=== PATIENT | male | born 1990 | race Caucasian/White ===

== ENCOUNTER 2019-06-16 20:42 | Observation (INO) | payer MEDICAID, SELFPAY ==
[2019-06-16 20:43] VITALS: BP 138/71; PULSE 60; RESP 15; TEMP 36.3; O2SAT 99; BMI 27.8
[2019-06-16 21:21] LABS: Bedside Glucose 170 mg/dL (70-110)
--- NOTE | 2019-06-16 21:24 | ED.DCSUM_ITS ---
- ER Visit Summary Date of Service: 06/16/19 Chief Complaint: Using fentanyl while on Suboxone for prior history of drug abuse. History of Present Illness: The patient is a 29 M past male history of drug abuse. Currently on Suboxone. Grandma is with him she gives most of the history. States that he has had several episodes of being diaphoretic today. No vomiting no diarrhea. No fever. No reported head injury. He denies being ill. Patient does willingly admit to using fentanyl while he is on Suboxone. He denies any hematemesis or melena. Physical Examination: 29-year-old male no acute distress. Sleepy. But arousable. Vital signs are stable and afebrile. Pulse ox 99% on room air no signs of hypoxia no distress. HEENT exam unremarkable. Atraumatic. Moist week's membranes. TMs normal. No hemotympanum. Pupils are unreactive/motions are intact pupils about 2 to 3 mm. No signs of trauma to his face or scalp. Neck nontender. No lymphadenopathy. Lungs clear to auscultation bilaterally. Heart regular rate and rhythm no murmur. Rate about 60. Chest were nontender. Abdomen soft nontender. No peritoneal signs. Pelvic girdle intact. Patient is moving all 4 extremities. No track mejias. No edema. No rashes. Normal range of motion. Nontender. Back nontender. Neurologically sleepy but easily arousable. Is awake and alert. He is able to give a history. He can move all of his extremities there is no focal motor deficits. Test Results: CBC shows no acute abnormality. White count of 9. Hemoglobin 14. No bands. Chemistries unremarkable anion gap of 4 normal BUN and creatinine glucose of 121. Emergency Department Course and Treatment: Patient's exam is basically unremarkable except he is sleepy. I think this is all secondary to drug abuse and probably withdrawal caused by the Suboxone off the same time using fentanyl. Currently he is not showing signs of withdrawal. Will be treated with a liter normal saline and screening labs obtained. Treatment Plan: On repeat exam the patient was extremely diaphoretic. Mildly agitated. He has a worn out for his arrest but the correction was full so he could be taken there. I spoke to the hospitalist his family was concerned they would be able to take care of him tonight with his withdrawal symptoms and he will admit him overnight. Disposition: Observation admission Impression: Acute on chronic drug abuse Suboxone therapy for drug abuse This note was generated with Refinder by [employer] dictation software. It may contain incorrect words, spelling, and punctuation that were not noted in review of the chart prior to signing ED Disposition - Plan for ED Patient: Disposition: Home or Assisted Living Instructions: Narcotic Withdrawal Referrals: Chika Desai [NON-STAFF] - As Needed Additional Instructions: Do not use any narcotic medications while you are taking her Suboxone.
[2019-06-16] MEDS: 0.9% Normal Saline 1,000 ML 1000 ML IV (21:32)
[2019-06-16 21:33] LABS: Absolute Lymphocyte Count 1.62 X10^3/uL (0.83-4.51); Absolute Neutrophil Count 7.3 X10^3/uL (2.0-7.7); Basophil# 0.03 X10^3/uL; Basophil% 0.3 % (0-1); Eosinophil# 0.05 X10^3/uL; Eosinophils% 0.5 % (0-5); Hematocrit 43.8 % (40-54); Hemoglobin 14.7 g/dL (13.0-16.5); Lymphocyte # 1.62 X10^3/ul (4.0); Lymphocyte % 17.1 % (19-41); Mean Corp Hgb Conc 33.6 g/dL (32-36); Mean Corpuscular Hgb 31.1 pg (27.0-32.0); Mean Corpuscular Volume 92.8 fL (80-94); Mean Platelet Vol. 10.6 fl (6.2-12.0); Monocyte# 0.52 X10^3/uL; Monocyte% 5.5 % (0-10); NRBC Flagged by Analyzer 0 % (0-5); Neutrophil # 7.25 X10^3/uL (2.7-7.7); Neutrophil % 76.3 % (47-70); Platelet Count 266 K/mm3 (150-450); RBC Distribution Width CV 12.8 % (11.6-14.6); RBC Distribution Width SD 43.8 fl (35.1-43.9); Red Blood Count 4.72 M/mm3 (4.6-6.2); White Blood Count 9.5 K/mm3 (4.4-11.0)
[2019-06-16 21:40] LABS: Anion Gap 4 (5-15); BUN 11 mg/dL (7-18); Calcium,Total 9.2 mg/dL (8.5-10.1); Chloride 105 mmol/L (98-107); Creatinine, Serum 0.84 mg/dL (0.70-1.30); EST Glomerular Filtration Rate 113 mL/min (>60); Est Glom Filt Rate - Afr Amer 137 mL/min (>60); Estimated Creatinine Clearance 136.95 ml/min; Glucose 121 mg/dL (74-106); Potassium 3.4 mmol/L (3.5-5.1); Sodium Level 137 mmol/L (136-145)
--- NOTE | 2019-06-16 22:07 | ED.DEP ---
ED Disposition - Plan for ED Patient: Disposition: Home or Assisted Living Instructions: Narcotic Withdrawal Referrals: Chika Desai [NON-STAFF] - As Needed Additional Instructions: Do not use any narcotic medications while you are taking her Suboxone.
--- NOTE | 2019-06-16 22:16 | PCM.HP.STD ---
Problem List (1) Opioid withdrawal Status: Acute History of Present Illness Date of Admission: 06/16/19 Chief Complaint: opioid withdrawal The patient is a 29 year old M with a significant history of tobacco abuse; marijuana abuse; opioid dependence who presented to emergency department with withdrawal symptoms. He reported his symptoms as chills; rigors; and severe diaphoresis. Patient reported that he developed opioid addiction after he was prescribed opioids following knee surgery. He reported that he has been clean since August of this year. However he relapsed recently. Patient is on Suboxone therapy. While on Suboxone he has been snorting fentanyl. A day before his presentation he missed a dose of his Suboxone. But on the day of presentation he took his Suboxone. Also on the same day of presentation he snorted fentanyl. At the Emergency department patient had severe diaphoresis and soaked the bed sheets at the emergency department. He was given IV fluids at the emergency department. Past Medical History Medical History: Medical History (Last Reviewed 06/16/19 @ 23:01 by Kevan Raya MD) Opioid abuse F11.10 Allergies amoxicillin [Amoxicillin] Adverse Reaction (Verified 06/16/19 20:47) Nausea/Vom/Diarrhea Penicillins Adverse Reaction (Verified 06/16/19 20:47) Nausea/Vom/Diarrhea Home Medications: Ambulatory Orders Medication Instructions Recorded Buprenorphine HCl/Naloxone HCl 1 tab SL DAILY 06/16/19 [Zubsolv 5.7-1.4 mg Tablet Sl] Surgical History: - - Knee and ankle surgery Lives: With Family Smoking Status: Current every day smoker Tobacco Use: Cigarettes Alcohol: None Drugs: Marijuana - *Family History Maternal History Items: - - Drug abuse Paternal History Items: - - Drug abuse Review of Systems Constitutional: Reports: Chills. Denies: Fever, Weight Change HEENT: Denies: Head Aches, Sinus Congestion, Sinus Drainage Cardiovascular: Denies: Chest Pain, Palpitations Respiratory: Denies: Cough, Shortness of breath at rest, Sputum production Gastrointestinal: Denies: Abdominal Pain, Nausea, Vomiting Genitourinary: Denies: Dysuria Musculoskeletal: Reports: Leg Pain. Denies: Joint Pain, Joint Tenderness Skin: Denies: Rash, Wounds Neurological: Denies: Numbness, Tingling, Focal weakness Psychiatric: Denies: Homicidal Ideations, Suicidal Ideations Hematologic/ Lymphatic: Denies: Easy Bruising, Easy Bleeding VTE Information - Inpt Only VTE Present on Admission: No VTE Mechan Device Prophylaxis: None VTE Pharm Prophylaxis ordered?: No Reason prophylaxis not ordered:: Treatment Not Indicated - Low risk; encouraged to ambulate Patient Problems: Active and Suspected Problems (Last Updated 06/16/19 @ 22:54 by Kevan Raya MD) Opioid withdrawal (Acute) - Physical Exam Vitals/I&O's: Vital Signs Temp Pulse Resp BP Pulse Ox 97.3 F L 60 15 138/71 H 99 06/16/19 20:43 06/16/19 20:43 06/16/19 20:43 06/16/19 20:43 06/16/19 20:43 Oxygen Delivery Method Room Air Weight: 90.718 kg Body Mass Index (BMI) 27.8 Finger Stick Blood Glucose 170 Intake and Output for Last 24 Hours 06/14/19 06/15/19 06/16/19 23:59 23:59 23:59 Intake Total 1000 / 1000 Balance 1000 / 1000 General: Alert, Oriented x3, Cooperative, - - Patient coiled in the position and with severe diaphoresis HEENT: Atraumatic, PERRLA, EOMI, Normocephalic Neck: Supple, No JVD, Negative Carotid Bruits Lungs: Clear to auscultation, Normal air movement, Tachypneic Cardiovascular: Regular rate, No murmurs Abdomen: Bowel Sounds Present, Soft, Non Tender Extremities: No edema, Capillary Refill Less than 3 Seconds Skin: No rashes, No breakdown Musculoskeletal: No Tenderness to Palpation of Joints or Extremities Neurological: Cranial nerves II-XII grossly intact Psych/Mental Status: Anxious Laboratory Results 06/16/19 20:54: POC Glucose 170 H 06/16/19 21:05: WBC 9.5, RBC 4.72, Hgb 14.7, Hct 43.8, MCV 92.8, MCH 31.1, MCHC 33.6, RDW Std Deviation 43.8, RDW Coeff of Yarelis 12.8, Plt Count 266, MPV 10.6, Immature Gran % (Auto) 0.300, Neut % (Auto) 76.3 H, Lymph % (Auto) 17.1 L, [place] % (Auto) 5.5, Eos % (Auto) 0.5, Baso % (Auto) 0.3, Absolute Neuts (auto) 7.3, Absolute Lymphs (auto) 1.62, Nucleated RBC % 0 06/16/19 21:05: Sodium 137, Potassium 3.4 L, Chloride 105, Carbon Dioxide 28.0, Anion Gap 4 L, BUN 11, Creatinine 0.84, Estim Creat Clear Calc 136.95, Est GFR (MDRD) Af Amer 137, Est GFR (MDRD) Non-Af 113, BUN/Creatinine Ratio 13.0, Glucose 121 H, Calcium 9.2 Current Medications Sodium Chloride () 1,000 mls @ 1,000 mls/hr IV .Q1H ONE Stop: 06/16/19 22:23 Last Infusion: 06/16/19 21:58 Dose: Infused Documented by: Assessment/Plan All Active Problems (Last Updated 06/16/19 @ 22:54 by Kevan Raya MD) Opioid withdrawal (Acute) The patient is a 29 year old M with a significant history of tobacco abuse; marijuana abuse; opioid abuse who presented to emergency department with chills; diaphoresis; and bilateral leg pain consistent with acute opioid withdrawal . Opiate dependence with acute withdrawal Probable patient has not found a balance between Suboxone use and fentanyl use. We will start patient on buprenorphine taper and other adjunctive opioid withdrawal medications. Patient received IV fluids in the emergency department. Because of severe diaphoresis with soaking of the bed sheet at the emergency department will continue patient on IV fluids. Normal saline with potassium ordered as patient is also hypokalemic. Hypokalemia On presentation his potassium was 3.4. We will give 40 mEq of potassium and start patient on normal saline with potassium supplementation. Trend BMP Marijuana use Counseled Tobacco abuse Counseled Nicotine patch ordered. DVT prophylaxis Low risk Encourage to ambulate. Code Visit Inpatient E&M: 40266 Init Hosp L3
[2019-06-16 22:36] VITALS: PULSE 61
[2019-06-16 22:58] VITALS: BMI 28.8
[2019-06-16 23:11] VITALS: BP 102/62; PULSE 49; RESP 16; O2SAT 99
[2019-06-16] MEDS: Potassium Chloride 40 MEQ in 0.9% Normal Saline 1,000 ML 100 MEQ IV (23:26)
[2019-06-16] MEDS: Buprenorphine HCl 2 MG TAB.SUBL SL (23:26)
[2019-06-17] VITALS (10 sets, daily range): BP systolic 110–145; BP diastolic 63–86; PULSE 55–97; RESP 12–22; TEMP 31.6–36.8; O2SAT 90–99
[2019-06-17] MEDS: Ondansetron 4 MG/2 ML Vial IV (03:34)
[2019-06-17] MEDS: Buprenorphine HCl 2 MG TAB.SUBL SL ×3 (06:30→22:18)
[2019-06-17 06:58] LABS: Anion Gap 7 (5-15); BUN 9 mg/dL (7-18); BUN/Creat Ratio 15.5 RATIO (10-20); Calcium,Total 8.5 mg/dL (8.5-10.1); Chloride 109 mmol/L (98-107); Creatinine, Serum 0.58 mg/dL (0.70-1.30); EST Glomerular Filtration Rate 174 mL/min (>60); Est Glom Filt Rate - Afr Amer 210 mL/min (>60); Estimated Creatinine Clearance 192.29 ml/min; Glucose 114 mg/dL (74-106); Potassium 4.1 mmol/L (3.5-5.1); Sodium Level 138 mmol/L (136-145)
--- NOTE | 2019-06-17 07:43 | NURSING ---
cat cormier placed on pt.
[2019-06-17 08:07] LABS: Thyroid Stim Hormone (TSH) 0.49 uIU/mL (0.358-3.74)
--- NOTE | 2019-06-17 09:06 | NURSING ---
heating blanket removed
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
--- NOTE | 2019-06-17 11:56 | PCM.PN.HOSP ---
Patient Problems: Active and Suspected Problems (Last Reviewed 06/16/19 @ 23:01 by Kevan Raya MD) Opioid withdrawal (Acute) Subjective: Feeling better today now that his body temperature is back to normal. He states that he has been on Suboxone since in the last week he started using crushed fentanyl. He was feeling okay yesterday around 8 AM when he had snorted fentanyl, however by that night around 6 PM he started having chills and Reiger's. He also became very sweaty in the ER and does not remember much of his trip to the ER or how he was in the ER. Vitals/I&O's: Vital Signs Temp Pulse Resp BP Pulse Ox 97.9 F 68 12 128/73 H 99 06/17/19 10:38 06/17/19 08:47 06/17/19 08:53 06/17/19 08:47 06/17/19 08:53 Oxygen Delivery Method Room Air Weight: 200 lb 13.458 oz Body Mass Index (BMI) 28.8 Finger Stick Blood Glucose 170 Intake and Output for Last 24 Hours 06/15/19 06/16/19 06/17/19 23:59 23:59 23:59 Intake Total 1000 / 1000 1020 / 1020 Output Total 725 / 725 Balance 1000 / 1000 295 / 295 General: Alert, Oriented x3, Cooperative, No apparent distress HEENT: Atraumatic, PERRLA, EOMI, Normocephalic Oral: Moist Mucosa Neck: Supple, No JVD Lungs: Clear to auscultation, Normal air movement, No rhonchi, No wheeze, No rales Cardiovascular: Regular rate, Regular Rhythm, Normal S1, Normal S2, No murmurs Abdomen: Soft, Non Tender, Non-Distended, No Hepato-splenomegaly Extremities: No edema, Capillary Refill Less than 3 Seconds Skin: No rashes, No breakdown Neurological: Neuro grossly intact, Sensory exam intact to light touch and pain Psych/Mental Status: Normal Affect, Appropriate Laboratory Results 06/16/19 20:54: POC Glucose 170 H 06/16/19 21:05: WBC 9.5, RBC 4.72, Hgb 14.7, Hct 43.8, MCV 92.8, MCH 31.1, MCHC 33.6, RDW Std Deviation 43.8, RDW Coeff of Yarelis 12.8, Plt Count 266, MPV 10.6, Immature Gran % (Auto) 0.300, Neut % (Auto) 76.3 H, Lymph % (Auto) 17.1 L, [place] % (Auto) 5.5, Eos % (Auto) 0.5, Baso % (Auto) 0.3, Absolute Neuts (auto) 7.3, Absolute Lymphs (auto) 1.62, Nucleated RBC % 0 06/16/19 21:05: Sodium 137, Potassium 3.4 L, Chloride 105, Carbon Dioxide 28.0, Anion Gap 4 L, BUN 11, Creatinine 0.84, Estim Creat Clear Calc 136.95, Est GFR (MDRD) Af Amer 137, Est GFR (MDRD) Non-Af 113, BUN/Creatinine Ratio 13.0, Glucose 121 H, Calcium 9.2 06/17/19 06:15: Sodium 138, Potassium 4.1, Chloride 109 H, Carbon Dioxide 22.0, Anion Gap 7, BUN 9, Creatinine 0.58 L, Estim Creat Clear Calc 192.29, Est GFR (MDRD) Af Amer 210, Est GFR (MDRD) Non-Af 174, BUN/Creatinine Ratio 15.5, Glucose 114 H, Calcium 8.5 06/17/19 06:15: TSH 0.49 Current Medications Acetaminophen (Tylenol) 650 mg PO Q6H PRN PRN PRN Reason: Pain Score 1-3/Temp > 100.7 F Buprenorphine HCl (Buprenorphine Hcl) 4 mg SL Q8H [place]; Taper Stop: 06/20/19 02:49 Last Admin: 06/17/19 06:30 Dose: 4 mg Documented by: Clonidine (Catapres) 0.1 mg PO Q2H PRN PRN PRN Reason: Hot/Cold Sweats or Anxiety Dextrose (D50w Syringe) 0 gm IV X1 PRN; Protocol PRN Reason: Hypoglycemia Dicyclomine HCl (Bentyl) 20 mg PO Q6H PRN PRN PRN Reason: Abdomnial Discomfort Glucagon () 1 mg IM .X1 PRN PRN Reason: Hypoglycemia Hydroxyzine HCl (Vistaril Vial) 50 mg IM Q6H PRN PRN PRN Reason: Breakthrough Anxiety Hydroxyzine Pamoate (Vistaril Pamoate Capsule) 50 mg PO Q6H PRN PRN PRN Reason: Mild Anxiety Sodium Chloride () 250 mls @ 15 mls/hr IV .[id number] PRN PRN Reason: Saline Flush Methocarbamol (Methocarbamol) 750 mg PO Q6H PRN PRN PRN Reason: Muscle Aches Nicotine (Nicoderm Cq (Pbkc)) 21 mg TRANSDERM. DAILY TR[place]IDAD Last Admin: 06/17/19 09:42 Dose: 21 mg Documented by: Ondansetron HCl (Zofran) 4 mg IV Q8H PRN PRN PRN Reason: NAUSEA/VOMITING Last Admin: 06/17/19 03:34 Dose: 4 mg Documented by: Pramipexole Dihydrochloride (Mirapex) 0.25 mg PO Q12H PRN PRN PRN Reason: Restless Legs Sodium Chloride () 10 - 40 ml IV UD PRN PRN Reason: SALINE FLUSH STROKE Vital Signs/Narrative: Vital Signs Temp Pulse Resp BP Pulse Ox 06/17/19 10:38 97.9 F 06/17/19 08:53 12 99 06/17/19 08:47 98.0 F 68 12 128/73 H 99 06/17/19 08:10 97.5 F L 55 L 16 115/75 97 Medical Necessity - Tobacco Use Smoking Status: Current every day smoker Tobacco Use: Cigarettes Assessment/Plan All Active Problems (Last Reviewed 06/16/19 @ 23:01 by Kevan Raya MD) Opioid withdrawal (Acute) 1. Acute opiate withdrawal/hypothermia -He has been snorting fentanyl and taking his Suboxone for about the last week. -No recent illnesses -Continue with IV fluids, he also had a bear hugger placed for significant hypothermia his initial vital which was 89.3, and then it was improved to 95. On admission he was placed on a bear hugger now his body temperatures back to normal -Continue with Suboxone -TSH was normal 2. Marijuana use/tobacco use -Advised cessation and provide a nicotine patch -He denies any other drug use 3. Hypokalemia-resolved DVT: Ambulation Code Visit Inpatient E&M: 88754 Subs Hosp L2
[2019-06-17] MEDS: hydrOXYzine PAM 25 MG Capsule 50 MG PO ×2 (12:54→19:03)
[2019-06-17] MEDS: Acetaminophen 325 MG Tablet 650 MG PO ×2 (12:54→19:59)
--- NOTE | 2019-06-17 14:04 | CHAPLAIN ---
Type of Pastoral Visit _x__ Initial Visit ___ Follow-up Visit ___ On-call Visit ___ General Patient Visit ___ Spiritual Assessment ___ Family Conference ___ Bereavement ___ Rapid Response ___ Code Blue ___ Other (describe below) Pastoral Care Referral From _x__ Patient ___ Family _x__ Nurse ___ Physician ___ [employer] Head Inspector And Adjuster ___ Business Info Consultant ___ Other (describe below) Sacrament/Intervention _x__ Active listening ___ Anointing ___ Hoahaoism ___ Bereavement ___ Communion _x__ Danita exploration ___ _x__ Life review _x__ Prayer ___ Reconciliation ___ Sacrament of Sick _x__ Supportive presence ___ Wedding ___ Other (describe below) Pastoral Comments patient immediately opens up about his life, past, family, concerns, and langley to be drug free; pt requests another visit tomorrow
[2019-06-17] MEDS: Methocarbamol 750 MG Tablet PO ×2 (14:13→22:30)
[2019-06-17] MEDS: cloNIDine HCl 0.1 MG Tablet PO (19:03)
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
[2019-06-18] MEDS: Ibuprofen 600 MG Tablet PO (00:42)
[2019-06-18 04:06] VITALS: BP 119/76; PULSE 61; RESP 16; TEMP 36.4; O2SAT 99
[2019-06-18] MEDS: Buprenorphine HCl 2 MG TAB.SUBL SL (07:16)
[2019-06-18 07:32] VITALS: O2SAT 96
[2019-06-18 08:03] VITALS: BP 119/93; PULSE 78; RESP 18; TEMP 37; O2SAT 95
--- NOTE | 2019-06-18 08:25 | NURSING ---
Pt inquiring if he has to stay all three days, denies s/s of withdrawal, asked for iv to be removed, states he would like to be discharged and is worried about his and kids.
--- NOTE | 2019-06-18 09:08 | DCINST_ITS ---
- Discharge Diagnoses Current Active Problems: Current Active and Chronic Problems (Last Reviewed 06/16/19 @ 23:01 by Kevan Raya MD) Opioid withdrawal (Acute) You will use the following diet at home:: Regular Your food should be the consistency of: Regular Your liquids should be the consistency of: Regular/Thin Discharge Activity: Return to Normal Activity Call your doctor if you observe: Fever of 101 or Higher, Shortness of breath, Dizziness, Fainting spells, Swelling in the ankles, Chest pain, Increased palpitations (irregular heartbeat) Instructions: Narcotic Withdrawal Allergies/Adverse Reactions: Allergies amoxicillin [Amoxicillin] Adverse Reaction (Verified 06/16/19 20:47) Nausea/Vom/Diarrhea Penicillins Adverse Reaction (Verified 06/16/19 20:47) Nausea/Vom/Diarrhea Medications to take at Discharge Buprenorphine HCl/Naloxone HCl [Zubsolv 5.7-1.4 mg Tablet Sl] 1 tab SL DAILY 06/16/19 Primary Care Physician: Chika Desai [NON-STAFF] - As Needed Please follow up with your Primary Care Physician in: 3-5 days Test Results: Test results from this visit will be discussed in further detail at your follow- up appointment, if applicable.
--- NOTE | 2019-06-18 10:12 | PCM.DC.SUM ---
Discharge Date and Diagnosis - Problem List Patient Problems: Active and Suspected Problems (Last Reviewed 06/16/19 @ 23:01 by Kevan Raya MD) Opioid withdrawal (Acute) Date of Admission: 06/16/19 Date of Discharge: 06/18/19 - Primary Discharge Diagnosis Active and Suspected Problems (Last Reviewed 06/16/19 @ 23:01 by Kevan Raya MD) Opioid withdrawal (Acute) Hospital Course and Treatment Imaging Results: None Consults: None Operations: None Procedures: None Summary of Care Provided: Per HPI: The patient is a 29 year old M with a significant history of tobacco abuse; marijuana abuse; opioid dependence who presented to emergency department with withdrawal symptoms. He reported his symptoms as chills; rigors; and severe diaphoresis. Patient reported that he developed opioid addiction after he was prescribed opioids following knee surgery. He reported that he has been clean since August of this year. However he relapsed recently. Patient is on Suboxone therapy. While on Suboxone he has been snorting fentanyl. A day before his presentation he missed a dose of his Suboxone. But on the day of presentation he took his Suboxone. Also on the same day of presentation he snorted fentanyl. At the Emergency department patient had severe diaphoresis and soaked the bed sheets at the emergency department. He was given IV fluids at the emergency department. Hospital Course: 1. Acute opiate [id number]-old male who had become addicted to opioids after having knee surgery. He progressed to snorting and had been clean since August however this last week he states that he went on a stack and he had been snorting fentanyl pretty much every day for the last week. When he presented to the hospital he was paretic and confused. He had a temporal temperature taken which showed 89.3 however on repeat with an oral temperature he was 95 to 96 degrees. He improved significantly with IV fluids and rest, much faster than anticipated. All his lab work was unremarkable and today he was ambulating around the room and eating breakfast. Unfortunately he felt that he needed to go home today because his was struggling with the kids and he did not want to stay to complete any type of detox. I did request that he follow-up with his primary care doctor to find a mental health professional to help with any type of anxiety and/or depression as he thought that this could have also possibly been secondary to a panic attack since his kicked him out of the house yesterday. He understands the risks and benefits of discharge. Patient Problems: Active and Suspected Problems (Last Reviewed 06/16/19 @ 23:01 by Kevan Raya MD) Opioid withdrawal (Acute) - Physical Exam Vitals/I&O's: Vital Signs Temp Pulse Resp BP Pulse Ox 98.6 F 78 18 119/93 H 95 06/18/19 08:03 06/18/19 08:03 06/18/19 08:03 06/18/19 08:03 06/18/19 08:03 Oxygen Delivery Method Room Air Weight: 200 lb 13.458 oz Body Mass Index (BMI) 28.8 Finger Stick Blood Glucose 170 Intake and Output for Last 24 Hours 06/16/19 06/17/19 06/18/19 23:59 23:59 23:59 Intake Total 1000 / 1000 2320 / 2560 440 / 440 Output Total 725 / 725 Balance 1000 / 1000 1595 / 1835 440 / 440 General: Alert, Oriented x3, Cooperative, No apparent distress HEENT: Atraumatic, PERRLA, EOMI, Normocephalic Oral: Moist Mucosa Neck: Supple, No JVD Lungs: Clear to auscultation, Normal air movement, No rhonchi, No wheeze, No rales Cardiovascular: Regular rate, Regular Rhythm, Normal S1, Normal S2, No murmurs Abdomen: Soft, Non Tender, Non-Distended, No Hepato-splenomegaly Extremities: No edema, Capillary Refill Less than 3 Seconds Skin: No rashes, No breakdown Neurological: Neuro grossly intact, Sensory exam intact to light touch and pain Psych/Mental Status: Normal Affect, Appropriate Current Medications Acetaminophen (Tylenol) 650 mg PO Q6H PRN PRN PRN Reason: Pain Score 1-3/Temp > 100.7 F Last Admin: 06/17/19 19:59 Dose: 650 mg Documented by: Buprenorphine HCl (Buprenorphine Hcl) 2 mg SL Q8H [facility]; Taper Stop: 06/20/19 02:49 Last Admin: 06/18/19 07:16 Dose: 2 mg Documented by: Clonidine (Catapres) 0.1 mg PO Q2H PRN PRN PRN Reason: Hot/Cold Sweats or Anxiety Last Admin: 06/17/19 19:03 Dose: 0.1 mg Documented by: Dextrose (D50w Syringe) 0 gm IV X1 PRN; Protocol PRN Reason: Hypoglycemia Dicyclomine HCl (Bentyl) 20 mg PO Q6H PRN PRN PRN Reason: Abdomnial Discomfort Glucagon () 1 mg IM .X1 PRN PRN Reason: Hypoglycemia Hydroxyzine HCl (Vistaril Vial) 50 mg IM Q6H PRN PRN PRN Reason: Breakthrough Anxiety Hydroxyzine Pamoate (Vistaril Pamoate Capsule) 50 mg PO Q6H PRN PRN PRN Reason: Mild Anxiety Last Admin: 06/17/19 19:03 Dose: 50 mg Documented by: Sodium Chloride () 250 mls @ 15 mls/hr IV .[id number] PRN PRN Reason: Saline Flush Ibuprofen (Motrin) 600 mg PO Q8H PRN PRN PRN Reason: Pain Score 1-3/10 Last Admin: 06/18/19 00:42 Dose: 600 mg Documented by: Methocarbamol (Methocarbamol) 750 mg PO Q6H PRN PRN PRN Reason: Muscle Aches Last Admin: 06/17/19 22:30 Dose: 750 mg Documented by: Nicotine (Nicoderm Cq (Pbkc)) 21 mg TRANSDERM. DAILY TRINIDAD Last Admin: 06/18/19 08:20 Dose: Not Given Documented by: Ondansetron HCl (Zofran) 4 mg IV Q8H PRN PRN PRN Reason: NAUSEA/VOMITING Last Admin: 06/17/19 03:34 Dose: 4 mg Documented by: Pramipexole Dihydrochloride (Mirapex) 0.25 mg PO Q12H PRN PRN PRN Reason: Restless Legs Sodium Chloride () 10 - 40 ml IV UD PRN PRN Reason: SALINE FLUSH Discharge Activity: Return to Normal Activity Call your doctor if you observe: Fever of 101 or Higher, Shortness of breath, Dizziness, Fainting spells, Swelling in the ankles, Chest pain, Increased palpitations (irregular heartbeat) Home Medications: Medications to take at Discharge Buprenorphine HCl/Naloxone HCl [Zubsolv 5.7-1.4 mg Tablet Sl] 1 tab SL DAILY 06/16/19 Primary Care Physician: Chika Desai [NON-STAFF] - As Needed Please follow up with your Primary Care Physician in: 3-5 days Patient Instructions: Narcotic Withdrawal Disposition: Home Minutes spent on discharge:: 35 Patient Condition:: Stable Medical Necessity - Tobacco Use Smoking Status: Current every day smoker Tobacco Use: Cigarettes Meaningful Use Info Meaningful Use Diagnoses (Choose all that apply): None applicable Code Visit Inpatient E&M: 73199 Disch Hosp
== END 2019-06-18 10:12 | disposition home or self-care (01) | DRG 773 ==
LOC: ED 22:09 → MS3 22:43
PROVIDERS: Admitting Provider Hospitalist; Emergency Provider Emergency Medicine; Visit Provider Family Medicine
DX: F11.23 Opioid dependence with withdrawal (principal); F17.210 Nicotine dependence, cigarettes, uncomplicated; E87.6 Hypokalemia; F12.10 Cannabis abuse, uncomplicated
CPT/HCPCS: 36415; 80048; 82962; 84443; 85025; 96361; 96374; 99218; 99285; J7030; A4216; G0378; J2405

== ENCOUNTER 2020-02-28 22:32 | Observation (INO) | payer MEDICAID, SELFPAY ==
[2019-06-16 22:58] VITALS: BMI 28.8
[2020-02-28 22:33] VITALS: BP 125/75; PULSE 80; RESP 16; TEMP 36.3; O2SAT 94; BMI 26.8
--- NOTE | 2020-02-28 22:37 | EKG12_ITS ---
Test Reason : SUBSTANCE ABUSE Blood Pressure : / mmHG Vent. Rate : 070 BPM Atrial Rate : 070 BPM P-R Int : 110 ms QRS Dur : 088 ms QT Int : 372 ms P-R-T Axes : 046 064 032 degrees QTc Int : 401 ms Sinus rhythm with short IN Otherwise normal ECG Confirmed by VONDA HA, CARLINE ([id number]), editor in chief WILLIAM SHARP ([id number]) on 03/02/2020 1:03:25 PM Referred By: JOHANA Confirmed By:CARLINE FERRARI MD
--- NOTE | 2020-02-28 22:41 | ED.DCSUM_ITS ---
History of Present Illness Chief Complaint: Substance Abuse Informant: Patient Onset: Today Narrative: 30-year-old male presents with concern for detox from fentanyl. States that he spoke with detox line today who sent him to the emergency department. States that he last used 4 hours ago. Has no physical complaints at this time. Denies any other con commitment drug abuse. Past Medical History - Allergies and Home Meds Allergies/Adverse Reactions: Allergies amoxicillin [Amoxicillin] Adverse Reaction (Verified 02/28/20 23:13) Nausea/Vom/Diarrhea Penicillins Adverse Reaction (Verified 02/28/20 23:13) Nausea/Vom/Diarrhea Primary Care Physician: [facility] Doctor,Out of [NON-STAFF] - Prior records reviewed: Yes Past Medical History: None Surgical History: - - Knee and ankle surgery Lives: Alone Smoking Status: Current every day smoker Drugs: - - Fentanyl - Family History Maternal Family History: Reports: - - Drug abuse Paternal Family History: Reports: - - Drug abuse Review of Systems General: Denies: Chills, Fever, Sweats Eyes: Denies: Visual changes - bilaterally, Diplopia ENT: Denies: Rhinorrhea, Sore throat Cardiovascular: Denies: Chest pain, Palpitations Respiratory: Denies: Dyspnea, Cough, Dyspnea on exertion Gastrointestinal: Denies: Abdominal pain, Nausea, Vomiting, Diarrhea, Melena, Hematochezia Genitourinary: Denies: Dysuria, Hematuria, Frequency Musculoskeletal: Denies: Back pain, Extremity Pain Skin: Denies: Rash, Wounds Neurological: Denies: Headache, Weakness, Numbness Physical Exam Vital Signs/Narrative: Vital Signs Temp Pulse Resp BP Pulse Ox 02/28/20 22:33 97.3 F L 80 16 125/75 H 94 Inital Vital Signs reviewed: Yes General: Well nourished, Well developed, No Acute Distress Head: Normocephalic, Atraumatic Eyes: Perrl, EOMI ENT: Moist mucous membranes, No rhinorrhea Neck: Supple, Nontender Cardiovascular: Regular rate, Regular rhythm, No murmurs Respiratory: No distress, CTA bilaterally, Chest nontender Abdomen: Soft, Nontender, Nondistended, Normal bowel sounds Back: Nontender, Normal Inspection Extremities: Nontender, No edema Skin: Normal color, No rash Neurological: Alert, Oriented x3, Cranial nerves II-XII grossly intact, Normal Strength, Normal Sensation Psychological: Normal affect, Normal Mood Diagnostic/Tx/Re-eval Laboratory Data 02/28/20 02/28/20 02/28/20 22:48 22:48 22:48 Sodium 138 Potassium 3.9 Chloride 104 Carbon Dioxide 29.0 Anion Gap 5 BUN 12 Creatinine 0.96 Estim Creat Clear Calc 118.75 Est GFR (MDRD) Af Amer 118 Est GFR (MDRD) Non-Af 97 BUN/Creatinine Ratio 12.5 Glucose 104 Calcium 8.5 Total Bilirubin 0.30 AST 15 ALT 20 Alkaline Phosphatase 56 Total Protein 7.3 Albumin 3.9 Globulin 3.4 Albumin/Globulin Ratio 1.1 Urine Opiates Screen NEGATIVE Urine Methadone Screen NEGATIVE Ur Barbiturates Screen NEGATIVE Ur Phencyclidine Scrn NEGATIVE Ur Amphetamines Screen NEGATIVE U Methamphetamin-MDMA NEGATIVE U Benzodiazepines Scrn NEGATIVE Urine Cocaine Screen NEGATIVE U Cannabinoids Screen POSITIVE H Ur Drug Screen Comment Ethyl Alcohol 5.0 - Rhythm Strip Rhythm Strip: Sinus Rhythm Rate: 70 Ectopy: None - EKG Initial EKG Interpretation: Sinus Rhythm - Normal sinus rhythm at 70 bpm. Short IA with interval of 110 ms. QTC of 401 ms. No evidence of ST elevation or depression at this time. - Medical Decision Making Patient appears well nontoxic. Vital signs within normal limits. Lab work within normal limits. Patient will be admitted for further detoxification from opiates. Stable at time of admission. ED Disposition - Plan for ED Patient: Disposition: Acute Care Hospital [facility] Diagnosis: Opiate dependence Referrals: [facility] Doctor,Out of [NON-STAFF] -
[2020-02-28 23:19] LABS: ALB/GLOB Ratio 1.1 RATIO (0.9-2.4); AST(SGOT) 15 U/L (15-37); Alanine Aminotransfer ALT/SGPT 20 U/L (16-61); Albumin, Serum 3.9 g/dL (3.2-5.0); Alkaline Phosphatase 56 U/L (45-117); Anion Gap 5 (5-15); BUN 12 mg/dL (7-18); BUN/Creat Ratio 12.5 RATIO (10-20); Calcium,Total 8.5 mg/dL (8.5-10.1); Chloride 104 mmol/L (98-107); Creatinine, Serum 0.96 mg/dL (0.70-1.30); EST Glomerular Filtration Rate 97 mL/min (>60); Est Glom Filt Rate - Afr Amer 118 mL/min (>60); Estimated Creatinine Clearance 118.75 ml/min; Globulin 3.4 g/dL (2.2-4.2); Glucose 104 mg/dL (74-106); Potassium 3.9 mmol/L (3.5-5.1); Protein, Total 7.3 g/dL (6.4-8.2); Sodium Level 138 mmol/L (136-145); Vista UDS pH Range 6
[2020-02-28 23:26] LABS: Amphetamine Urine VISTA NEGATIVE (<1000 ng/mL); Barbiturate Urine VISTA NEGATIVE (< 200 ng/mL); Benzodiazepine Urine VISTA NEGATIVE (< 200 ng/mL); Cocaine Urine VISTA NEGATIVE (< 300 ng/mL); Ecstacy Urine VISTA NEGATIVE (< 500 ng/mL); Methadone Urine VISTA NEGATIVE (< 300 ng/mL); PCP Urine VISTA NEGATIVE (< 25 ng/mL); THC Urine VISTA POSITIVE (< 50 ng/mL)
--- NOTE | 2020-02-28 23:34 | HP.PCM_ITS ---
Problem List (1) Nicotine dependence Status: Acute Qualifiers: Nicotine product type: cigarettes Substance use status: uncomplicated Qualified Code(s): F17.210 - Nicotine dependence, cigarettes, uncomplicated (2) Opioid withdrawal Status: Acute (3) Opiate dependence Status: Acute Qualifiers: Substance use status: with unspecified opioid-induced disorder Qualified Code(s): F11.29 - Opioid dependence with unspecified opioid-induced disorder History of Present Illness Date of Admission: 02/29/20 Chief Complaint: Request for medical stabilization for chronic opioid use The patient is a 30 year old M with no significant past medical history who comes in requesting for medical stabilization for chronic opioid use. Patient has been using fentanyl. He last used fentanyl 6 hours before admission. He denied any withdrawal symptoms at this time. He denied any sick contacts or fever or chills or cough. He has been trying to quit on his own and has been unsuccessful. Vitals in the ED showed temperature of 97.3F, heart rate 80, blood pressure 125/75, respiratory to 16, SPO2 is 94% on room air. His CMP was unremarkable. Urine tox was positive to for cannabinoids. Alcohol level was 5.0. Past Medical History Medical History: Medical History (Last Reviewed 06/16/19 @ 23:[address] Kevan Raya MD) Opioid abuse F11.10 Allergies amoxicillin [Amoxicillin] Adverse Reaction (Verified 02/28/20 23:13) Nausea/Vom/Diarrhea Penicillins Adverse Reaction (Verified 02/28/20 23:13) Nausea/Vom/Diarrhea Home Medications: Ambulatory Orders Medication Instructions Recorded NK 02/28/20 Surgical History: - - Knee and ankle surgery Psychiatric History: No pertinent psych hx Lives: Spouse/ Significant Other Smoking Status: Current every day smoker Tobacco Use: Cigarettes Alcohol: Rare Drugs: Marijuana, - - Fentanyl - *Family History Maternal History Items: No pertinent history, - - Drug abuse Paternal History Items: No pertinent history, - - Drug abuse Review of Systems Constitutional: Denies: Anorexia, Chills, Fever, Night Sweats, Malaise, Weakness, Weight Change, Fatigue Eyes: Denies: Blurred vision, Cataracts, Conjunctivae Inflammation, Pain, Redne ss, Vision Change HEENT: Denies: Difficulty Hearing, Difficulty Swallowing, Head Aches, Hearing Changes, Nasal bleeding, Sinus Congestion, Sinus Drainage Cardiovascular: Denies: Chest Pain, Claudication, Light Headedness, Orthopnea, Palpitations, Paroxysmal Noc. Dyspnea Respiratory: Denies: Cough, Hemoptysis, Shortness of Breath, Shortness of breath at rest, Shortness of breath upon exertion, Sputum production Gastrointestinal: Denies: Abdominal Pain, Constipation, Hematemesis, Hematochezia, Nausea, Vomiting Genitourinary: Denies: Dysuria, Frequency, Incontinence Musculoskeletal: Denies: Joint Pain, Joint stiffness, Joint swelling, Joint Tend erness Skin: Denies: Rash, Wounds Neurological: Denies: Difficulty swallowing, Focal weakness, Numbness, Tingling Psychiatric: Denies: Anxiety, Depression, Homicidal Ideations, Suicidal Ideations Hematologic/ Lymphatic: Denies: Easy Bruising, Easy Bleeding VTE Information - Inpt Only VTE Present on Admission: No VTE Pharm Prophylaxis ordered?: Yes Patient Problems: Active and Suspected Problems (Last Reviewed 06/16/19 @ 23:[address] Kevan Raya MD) Opiate dependence (Acute) Nicotine dependence (Acute) - Physical Exam Vitals/I&O's: Vital Signs Temp Pulse Resp BP Pulse Ox 97.3 F L 80 16 125/75 H 94 02/28/20 22:33 02/28/20 22:33 02/28/20 22:33 02/28/20 22:33 02/28/20 22:33 Oxygen Delivery Method Room Air Weight: 87.3 kg Body Mass Index (BMI) 26.8 Finger Stick Blood Glucose 170 General: Alert, Oriented x3, Cooperative, No apparent distress HEENT: Atraumatic, PERRLA, EOMI, Normocephalic Oral: Moist Mucosa Neck: Supple Lungs: Clear to auscultation, Normal air movement Cardiovascular: Regular rate, Regular Rhythm, Normal S1, Normal S2, No murmurs Abdomen: Bowel Sounds Present, Soft, Non Tender, Non-Distended, No Hepato- splenomegaly Extremities: No edema Skin: No rashes Musculoskeletal: No Tenderness to Palpation of Joints or Extremities Lymphatic: No Cervical, Supraclavicular, or Inguinal Adenopathy Neurological: Cranial nerves II-XII grossly intact, Neuro grossly intact Psych/Mental Status: Normal Affect, Appropriate Laboratory Results 02/28/20 22:48: Sodium 138, Potassium 3.9, Chloride 104, Carbon Dioxide 29.0, Anion Gap 5, BUN 12, Creatinine 0.96, Estim Creat Clear Calc 118.75, Est GFR (MDRD) Af Amer 118, Est GFR (MDRD) Non-Af 97, BUN/Creatinine Ratio 12.5, Glucose 104, Calcium 8.5, Total Bilirubin 0.30, AST 15, ALT 20, Alkaline Phosphatase 56, Total Protein 7.3, Albumin 3.9, Globulin 3.4, Albumin/Globulin Ratio 1.1 02/28/20 22:48: Ethyl Alcohol 5.0 02/28/20 22:48: Urine Opiates Screen NEGATIVE, Urine Methadone Screen NEGATIVE, Ur Barbiturates Screen NEGATIVE, Ur Phencyclidine Scrn NEGATIVE, Ur Amphetamines Screen NEGATIVE, U Methamphetamin-MDMA NEGATIVE, U Benzodiazepines Scrn NEGATIVE, Urine Cocaine Screen NEGATIVE, U Cannabinoids Screen POSITIVE H, Ur Drug Screen Comment Assessment/Plan All Active Problems (Last Reviewed 06/16/19 @ 23:[address] Kevan Raya MD) Opioid withdrawal (Acute) Opiate dependence (Acute) Nicotine dependence (Acute) 1. Chronic opioid use disorder, request for medical stabilization No signs of acute withdrawal at the moment Last used fentanyl 6 hours before admission Will continue to manage on the withdrawal protocol with Subutex, would monitor CINA 2. Nicotine dependence, advised to quit, Will offer replacement 3. Polysubstance use, advised to quit 4. DVT prophylaxis?low risk, early ambulation recommended Inpatient E&M: 44777 Init Hosp L2
[2020-02-28 23:54] VITALS: BP 107/61; PULSE 72; RESP 16; TEMP 37.1; O2SAT 95
[2020-02-29 00:41] VITALS: BMI 26.6
[2020-02-29 00:54] VITALS: BP 110/60; PULSE 62; RESP 18; TEMP 36.5; O2SAT 99
[2020-02-29 05:01] VITALS: BP 106/74; PULSE 78; RESP 18; TEMP 36.6; O2SAT 99
[2020-02-29] MEDS: Buprenorphine HCl 2 MG TAB.SUBL 4 MG SL (05:30)
--- NOTE | 2020-02-29 09:04 | NURSING ---
informed by staff analyst, Erika that she found this patient congregating with 312 in the hallway and they were again informed they were not suppose to be visiting each other. Into talk with the patient. Patient reminded of the agreement he had signed and that this including his significant other admitted in [facility]. Instructed patient that although we permit ambulating in the hallway we have requested that they do not congregate together in the hallway or be in each others rooms. Pt verbalized understanding and agreement. Denies all further needs.
--- NOTE | 2020-02-29 09:21 | NURSING ---
Addendum entered by Betty Salamanca 02/29/20 09:26: This nurse did not have time to get VS or an Assessment. Original Note: Pt walking watson with mask on. I need to see you. This nurse went to his room. Pt stated he wanted to leave. This nurse asked if he was sure and encouraged him to stay. Pt's girlfriend is an inpt and was recently in his room when the Charge Nurse Yesenia, went into his room and told them that they can not be in the room together. So patient's girlfriend upset and wanted pt to leave. Dr. Vaughan is here on the floor and aware and did talk to pt. Pt signed AMA paper.
--- NOTE | 2020-02-29 10:09 | PCM.DC.SUM ---
Discharge Date and Diagnosis Date of Admission: 02/29/20 Date of Discharge: 02/29/20 Hospital Course and Treatment Imaging Results: None Consults: None Operations: None Procedures: None Summary of Care Provided: Per HPI: The patient is a 30 year old M with no significant past medical history who comes in requesting for medical stabilization for chronic opioid use. Patient has been using fentanyl. He last used fentanyl 6 hours before admission. He denied any withdrawal symptoms at this time. He denied any sick contacts or fever or chills or cough. He has been trying to quit on his own and has been unsuccessful. Vitals in the ED showed temperature of 97.3F, heart rate 80, blood pressure 125/75, respiratory to 16, SPO2 is 94% on room air. His CMP was unremarkable. Urine tox was positive to for cannabinoids. Alcohol level was 5.0. Hospital Course: 1. Chronic opioid use disorder here for medical [id number]-old male who used fentanyl about 6 hours prior to admission presents for medical stabilization. He is started on the withdrawal protocol with Subutex and was meeting medical necessity to stay however his girlfriend who was also admitted at the same time with him for medical stabilization from fentanyl use was wandering the halls and happened to find his room. When they are admitted for detox they do sign a waiver that states that they are not to be in other peoples rooms and because she violated that she was kindly reminded that she is not to go into his room. At this point she decided to leave [place] and pressured Paddy to leave [place] as well. I discussed with him the need to stay and that at the moment it is about his wellbeing and not his relationship and that he needed to get clean. Ultimately though he decided to leave [place]. - Physical Exam Vitals/I&O's: Vital Signs Temp Pulse Resp BP Pulse Ox 97.9 F 78 18 106/74 99 02/29/20 05:01 02/29/20 05:01 02/29/20 05:01 02/29/20 05:01 02/29/20 05:01 Oxygen Delivery Method Room Air Weight: 190 lb 14.725 oz Body Mass Index (BMI) 26.6 Finger Stick Blood Glucose 170 Intake and Output for Last 24 Hours 02/27/20 02/28/20 02/29/20 23:59 23:59 23:59 Intake Total 480 / 480 Balance 480 / 480 General: Alert, Oriented x3, Cooperative, No apparent distress HEENT: Atraumatic, PERRLA, EOMI, Normocephalic Oral: Moist Mucosa Neck: Supple, No JVD Lungs: Clear to auscultation, Normal air movement, No rhonchi, No wheeze, No rales Cardiovascular: Regular rate, Regular Rhythm, Normal S1, Normal S2, No murmurs Abdomen: Soft, Non Tender, Non-Distended, No Hepato-splenomegaly Extremities: No edema, Capillary Refill Less than 3 Seconds Skin: No rashes, No breakdown Neurological: Neuro grossly intact, Sensory exam intact to light touch and pain Psych/Mental Status: Agitated, Restless Laboratory Results 02/28/20 22:48: Sodium 138, Potassium 3.9, Chloride 104, Carbon Dioxide 29.0, Anion Gap 5, BUN 12, Creatinine 0.96, Estim Creat Clear Calc 118.75, Est GFR (MDRD) Af Amer 118, Est GFR (MDRD) Non-Af 97, BUN/Creatinine Ratio 12.5, Glucose 104, Calcium 8.5, Total Bilirubin 0.30, AST 15, ALT 20, Alkaline Phosphatase 56, Total Protein 7.3, Albumin 3.9, Globulin 3.4, Albumin/Globulin Ratio 1.1 02/28/20 22:48: Ethyl Alcohol 5.0 02/28/20 22:48: Urine Opiates Screen NEGATIVE, Urine Methadone Screen NEGATIVE, Ur Barbiturates Screen NEGATIVE, Ur Phencyclidine Scrn NEGATIVE, Ur Amphetamines Screen NEGATIVE, U Methamphetamin-MDMA NEGATIVE, U Benzodiazepines Scrn NEGATIVE, Urine Cocaine Screen NEGATIVE, U Cannabinoids Screen POSITIVE H, Ur Drug Screen Comment Home Medications: Medications to take at Discharge NK 02/28/20 Primary Care Physician: [facility] Doctor,Out of [NON-STAFF] - Please follow up with your Primary Care Physician in: 3-5 days Disposition: Home Minutes spent on discharge:: 35 Patient Condition:: Stable Medical Necessity - Tobacco Use Smoking Status: Current every day smoker Tobacco Use: Cigarettes Meaningful Use Info Meaningful Use Diagnoses (Choose all that apply): None applicable Inpatient E&M: 97873 Disch Hosp
== END 2020-02-29 09:13 | disposition left against medical advice (07) ==
LOC: ED 23:42 → MS3 02-29 04:21
PROVIDERS: Admitting Provider Internal Medicine; Emergency Provider Emergency Medicine; Visit Provider Family Medicine
DX: F11.20 Opioid dependence, uncomplicated (principal); F17.210 Nicotine dependence, cigarettes, uncomplicated
CPT/HCPCS: 36415; 80053; 80307; 80320; 93005; 99218; 99283; G0378; G0480